=== PATIENT | female | born 1990 | race Caucasian/White ===

== ENCOUNTER 2018-04-21 11:30 | Emergency (ER) | payer OTHER ==
--- NOTE | 2018-04-21 11:54 | ERPHSYRPT ---
- History of Present Illness Time Seen by Provider: 04/21/18 11:46 Source: patient Exam Limitations: no limitations Patient Subjective Stated Complaint: RIGHT SIDED TOOTH, AND MOUTH PAIN AND SWELLING. STATES PAIN HAS BEEN INTERMITTEN FOR APPROX ONE MONTH. SWELLING AND INCREASED PAIN STARTED YESTERDAY Triage Nursing Assessment: ALERT AND ORIENTED X 3. RIGHT SIDED FACE/JAW SWELLING SEEN. TOOTH APPEARS BROKEN. NO AXIETY NOTED. STATES MILD HEADACHE 2/ 10. THROAT PAIN, TENDER. Physician History: The patient is a 27-year-old female complaining of right lower tooth pain intermittently for about one month. It became much worse yesterday. Now this morning her right back molar area is very swollen and tender. She called a local dentist who was not able to see her today. She denies any trauma to the area. Timing/Duration: gradual onset Severity: moderate ENT Location: dental Prearrival Treatment: no prearrival treatment Associated Symptoms: facial pain/swelling, tooth pain Allergies/Adverse Reactions: No Known Drug Allergies Allergy (Unverified 04/21/18 11:35) Home Medications: No Reportable Medications [No Reported Medications] 04/21/18 [History] Hx Tetanus, Diphtheria Vaccination/Date Given: Yes (2013) - Review of Systems Constitutional: No Fever, No Chills Eyes: No Symptoms Ears, Nose, & Throat: Mouth Pain Respiratory: No Cough, No Dyspnea Cardiac: No Chest Pain, No Edema, No Syncope Abdominal/Gastrointestinal: No Abdominal Pain, No Nausea, No Vomiting, No Diarrhea Genitourinary Symptoms: No Dysuria Musculoskeletal: No Back Pain, No Neck Pain Skin: No Rash Neurological: No Dizziness, No Focal Weakness, No Sensory Changes Psychological: No Symptoms Endocrine: No Symptoms All Other Systems: Reviewed and Negative - Past Medical History Pertinent Past Medical History: No Neurological History: No Pertinent History ENT History: No Pertinent History Cardiac History: No Pertinent History Respiratory History: No Pertinent History Endocrine Medical History: No Pertinent History Musculoskeletal History: No Pertinent History GI Medical History: No Pertinent History History: No Pertinent History Psycho-Social History: No Pertinent History Female Reproductive Disorders: No Pertinent History - Past Surgical History Past Surgical History: Yes Neuro Surgical History: No Pertinent History Cardiac: No Pertinent History Respiratory: No Pertinent History Gastrointestinal: No Pertinent History Genitourinary: No Pertinent History Musculoskeletal: No Pertinent History Female Surgical History: Tubal Ligation - Social History Smoking Status: Current every day smoker Drug Use: none Patient Lives Alone: No - Female History Hx Last Menstrual Period: 03/16/18 Hx Now: No - Nursing Vital Signs Nursing Vital Signs: Initial Vital Signs Temperature 99.3 F 04/21/18 11:31 Pulse Rate 86 04/21/18 11:31 Respiratory Rate 18 04/21/18 11:31 Blood Pressure 136/81 04/21/18 11:31 O2 Sat by Pulse Oximetry 99 04/21/18 11:31 Pain Scale Pain Intensity 10 - Physical Exam General Appearance: no apparent distress, alert Eye Exam: bilateral eye: PERRL, EOMI Ear Exam: bilateral ear: auricle normal Nasal Exam: normal inspection Throat Exam: pharynx normal, maxillary swelling (redness, swelling, and tenderness around right lower posterrior molar), moist mucus membranes, No tonsillar exudate Neck Exam: supple Cardiovascular/Respiratory Exam: normal breath sounds, regular rate/rhythm Abdominal Exam: non-tender, soft Neurologic Exam: alert, oriented x 3, sensation nml, No motor deficits Skin Exam: normal color, warm, dry SpO2: 99 Oxygen Delivery: Room Air Ordered Tests: Medication Summary Discontinued Medications Generic Name Dose Route Start Last Admin Trade Name Freq PRN Reason Stop Dose Admin Ketorolac Tromethamine 60 mg 04/21/18 12:12 Toradol 30 Mg Injection IM 04/21/18 12:13 STAT ONE - Progress Counseled pt/family regarding: diagnosis, need for follow-up - Departure Time of Disposition: 12:33 Departure Disposition: Home Clinical Impression: Dental abscess Condition: Stable Critical Care Time: No Additional Instructions: You have an abscess around the first molar on the lower right jaw. You were given Toradol 60 mg IM in the ER. Take penicillin 500 mg 4 times a day for 10 days. Take naproxen 500 mg twice a day as needed. Take Tylenol No. 3 one tablet every 4-6 hours as needed. Follow-up with the dentist next week. Prescriptions: Codeine Phosphate/APAP #3 [Tylenol #3 Tablet] 1 tab PO Q4-6HPRN PRN #6 tablet PRN Reason: Pain Naproxen 500 mg PO BID PRN #30 cap Penicillin V Potassium 500 mg PO QID #40 tablet
[2018-04-21] MEDS ORDERED: TORAdol 30 mg Injection IM ONE (12:12)
[2018-04-21] MEDS ORDERED: TORAdol 30 mg Injection ONE (12:24)
[2018-04-21 12:36] VITALS: BP 135/88; PULSE 64
[2018-04-21 12:37] VITALS: O2SAT 99
== END 2018-04-21 12:43 | disposition home or self-care (01) ==
LOC: ED 11:30
DX: K04.7 Periapical abscess without sinus (principal)
CPT/HCPCS: 96372; 99284; J1885